=== PATIENT | male | born 1950 | race Hispanic/Latino ===

== ENCOUNTER 2020-02-05 08:46 | Outpatient (CLI) | payer MEDICARE, OTHER ==
--- NOTE | 2020-02-05 09:20 | RAD ---
XR Lumbar Spine 2 Or 3 View: 02/05/2020 8:57 AM INDICATION: Low back pain with bilateral sciatica COMPARISON: None FINDINGS: Fracture: None. Alignment: There is mild grade 1 anterolisthesis of L3 on L4. Degenerative Change: There is advanced disc degenerative disease at L5-S1 with moderate disc degener ative disease at L2-3 and L3-4. Mild disc degenerative disease is seen at L1-L2 and L4-5. There is advanced facet osteoarthrosis at L3-4 through L5-S1. Bone Mineralization:Normal Soft tissues: No acute abnormality. IMPRESSION: Moderate lumbar spondylosis. No acute fracture or subluxation.
--- NOTE | 2020-02-05 09:20 | RAD ---
XR Hip Lt 2-3 View INDICATION: Left hip pain COMPARISON: None FINDINGS: Bones: No acute fractures demonstrated. Small bone island is seen within the left acetabulum. Hip joint: Radiographically normal. SI joints and symphysis pubis: Radiographically normal. Intrapelvic contents: Small phlebolith is seen within the lower right hemipelvis. Surrounding soft tissues: Radiographically normal. IMPRESSION: 1. No acute osseous abnormality.
--- NOTE | 2020-02-05 12:33 | RAD ---
RIGHT HIP 2 VIEWS: Date: 02/05/2020 HISTORY: Right hip pain for the past 2 months. FINDINGS: There are arthritic changes of the hip. There is some subtle subchondral cystic change near the femor al head/neck junction laterally. This would suggest there is an element of mild femoroacetabular impi ngement. Some minimal superior joint space narrowing is seen. IMPRESSION: Mild arthritic change of the right hip. POS: FRITZ
== END 2020-02-05 08:47 | disposition home or self-care (01) ==
LOC: BICRAD 08:46
PROVIDERS: ATTEND Physician Assistant
DX: M25.551 Pain in right hip (principal); M25.552 Pain in left hip; M54.42 Lumbago with sciatica, left side; M54.41 Lumbago with sciatica, right side; M16.11 Unilateral primary osteoarthritis, right hip; M47.816 Spondylosis without myelopathy or radiculopathy, lumbar region
CPT/HCPCS: 72100

== ENCOUNTER 2020-02-12 12:42 | Outpatient (CLI) | payer MEDICARE, OTHER ==
--- NOTE | 2020-02-12 14:46 | MRI ---
MRI OF THE LUMBAR SPINE WITHOUT CONTRAST: 02/12/20 INDICATION: History of spondylosis with radiculopathy. COMPARISON: Prior lumbar spinal radiograph dated 02/05/20. FINDINGS: There are five lumbar type vertebral bodies seen on the comparison radiograph. 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 Spinal alignment appears within normal limits. Conus is seen to terminate at L3. The visualized retroperitoneum and periventricular soft tissues appear within normal limits. An additional benign appearing hemangioma is seen within the right aspect of T12. At L5-S1, there is Modic end plate degenerative change and severe loss of the normal disc space heigh t. There is a broad based disc osteophyte complex with facet hypertrophy inducing moderate right and mild left lateral recess narrowing. The facet hypertrophy and disc osteophyte complex with loss of di sc space height induces moderate bilateral neural foraminal narrowing, right greater than left. At L4-5, there is a broad based bulge and moderate facet joint degenerative change inducing mild left neural foraminal narrowing. At L3-4, there is a broad based bulge with facet hypertrophy and ligamentum flavum hypertrophy induci ng moderate central canal narrowing with mild bilateral neural foraminal narrowing. At L2-3, there is a broad based bulge with mild facet joint degenerative changes inducing mild centra l canal narrowing and mild bilateral neural foraminal narrowing. At L1-2, there is no appreciable central canal or neural foraminal narrowing. There is a small broad based bulge. At T12-L1, there is no appreciable central canal or neural foraminal narrowing. IMPRESSION: 1. Moderate lumbar spondylosis with moderate to severe bilateral neural foraminal narrowing at L 5-S1. There is moderate left and mild right lateral recess narrowing at L5-S1 due to disc osteophyte complex and facet hypertrophy. 2. Mild left neural foraminal narrowing at L4-5. 3. Moderate central canal narrowing at L3-4 with mild bilateral neural foraminal narrowing. 4. Mild central canal narrowing at L2-3 with mild bilateral neural foraminal narrowing. POS: BH
== END 2020-02-12 12:43 | disposition home or self-care (01) ==
LOC: BICMRI 12:42
PROVIDERS: ATTEND Physician Assistant
DX: M47.27 Other spondylosis with radiculopathy, lumbosacral region (principal); M47.26 Other spondylosis with radiculopathy, lumbar region; M48.07 Spinal stenosis, lumbosacral region; M25.78 Osteophyte, vertebrae; M48.061 Spinal stenosis, lumbar region without neurogenic claudication
CPT/HCPCS: 72148

== ENCOUNTER 2020-04-01 19:01 | Inpatient (IN) | payer MEDICARE, OTHER ==
[2020-04-01] MEDS ORDERED: Acetaminophen 500 MG TAB ONE (19:41)
[2020-04-01] MEDS ORDERED: Dexamethasone 10 MG/ML VIAL ONE (19:41)
--- NOTE | 2020-04-01 20:05 | RAD ---
PORTABLE CHEST: 04/01/20 PROVIDED CLINICAL HISTORY: Dyspnea. FINDINGS: No comparisons. The cardiac silhouette is within normal limits for portable technique. There are patchy bilateral pre dominantly perihilar parenchymal opacities. There is no pleural fluid or pneumothorax apparent. IMPRESSION: Findings compatible with COVID pneumonia. POS: OPAL
[2020-04-01 20:15] LABS: #Lymphocytes 0.7 thou/uL (1.20-3.40); #Monocytes 0.6 thou/uL (0.11-0.59); #Neutrophils 12.8 thou/uL (1.40-6.50); %Basophils 0.1 % (0.0-1.0); %Eosinophils 0.1 % (0.0-10.0); %Lymphocytes 4.9 % (21.0-51.0); %Monocytes 4.4 % (0.0-10.0); %Neutrophils 90.5 % (42.0-75.0); Hemoglobin 15.5 g/dL (14.0-18.0); Mean Corpuscular Hemoglobin 31.5 pg (27.0-31.0); Mean Corpuscular Volume 92.8 fL (78.0-98.0); Mean Platelet Volume 7.5 fL (7.4-10.4); Platelet Count 183 thou/uL (130-400); RBC Distribution Width 11.7 % (11.5-14.5); Red Blood Cell (RBC) Count 4.91 mill/uL (4.70-6.10); White Blood Cell (WBC) Count 14.2 thou/uL (4.8-10.8)
[2020-04-01] MEDS ORDERED: Azithromycin 500 MG VIAL ONE (20:35)
[2020-04-01 20:37] LABS: ALT (SGPT) 40 U/L (8-55); AST (SGOT) 41 U/L (5-34); Albumin 3.9 g/dL (3.4-4.8); Alkaline Phosphatase 67 U/L (40-110); Anion Gap 15 mmol/L (10-20); BUN (Urea Nitrogen) 11 mg/dL (8.4-25.7); Calc. Creatinine Clearance 0 mL/min (70-130); Calcium 8.4 mg/dL (7.8-10.44); Carbon Dioxide 25 mmol/L (23-31); Chloride 100 mmol/L (98-107); Globulin 3.6 g/dL (2.4-3.5); Glucose 99 mg/dL (80-115); Potassium 4.1 mmol/L (3.5-5.1); Protein, Total 7.5 g/dL (5.8-8.1); Sodium 136 mmol/L (136-145)
--- NOTE | 2020-04-01 21:20 | PDOC.HHP ---
Hospitalist HPI - History of Present Illness SOB History of Present Illness: Mr. Bull is a 69-year-old male with a past medical history of hyperlipidemia who presents for worsening shortness of breath. Patient reports that his symptoms began with fever, chills, myalgias and dry cough approximately one week ago. He tested positive for Covid on 03/27 after noticing a loss of taste and smell. Patient reports that over the past few days his breathing has worsened and he is now short of breath at rest. He endorses headache, denies changes in vision. Denies chest pain, palpitations. Endorses nausea, but denies abdominal pain or diarrhea. Emergency room initial vital signs 88% on room air, febrile to 103.2, 92, 25, improved to 97% on 3 L nasal cannula. WBC 14.2. H/H 15.5/45.5. BUN/CR 11/ 1.16. Lactic acid 1.3. Inflammatory markers elevated with CRP 18.65, ESR 56. AST/ALT 41/40. Chest x-ray showed bilateral patchy infiltrates consistent with Covid pneumonia. Patient received azithromycin, dexamethasone, normal saline, Tylenol in emergency room. Patient admitted to hospitalist service for further management of his COVID-19 pneumonia. Hospitalist ROS - Review of Systems Constitutional: reports: fever, chills, weakness, malaise. denies: sweats Eyes: denies: pain, vision change, conjunctivae inflammation, eyelid inflammation, redness, other ENT: denies: ear pain, ear discharge, nose pain, nose discharge, nose congestion, mouth pain, mouth swelling, throat pain, throat swelling, other Respiratory: reports: cough, dry, shortness of breath, SOB with excertion. denies: hemoptysis, pleuritic pain, sputum, wheezing, other Cardiovascular: denies: chest pain, palpitations, orthopnea, paroxysmal noc. dyspnea, edema, light headedness, other Gastrointestinal: denies: nausea, vomiting, abdominal pain, diarrhea, constipation, melena, hematochezia, other Genitourinary: denies: dysuria, frequency, incontinence, hematuria, retention, other Musculoskeletal: denies: neck pain, shoulder pain, arm pain, back pain, hand pain, leg pain, foot pain, other Skin: denies: rash, lesions, jone, bruising, other Neurological: denies: weakness, numbness, incoordination, change in speech, confusion, seizures, other - Medication Medications: Home medications include Simvastatin No known drug allergies Hospitalist History - Past Medical History Other Medical History: Past medical history includes Hyperlipidemia - Past Surgical History Other Surgical History: Past surgical history includes Appendectomy - Family History Other Family History: No pertinent family history - Social History Smoking Status: Never smoker Alcohol: reports: Rare Drugs: reports: none Living Situation: With Family Activity level: independent ambulation - Exam General Appearance: NAD, awake alert General - other findings: Comfortable on 3 L nasal cannula Eye: PERRL, anicteric sclera ENT: normocephalic atraumatic, no oropharyngeal lesions, moist mucosa Neck: supple, symmetric, no JVD, no thyromegaly, no lymphadenopathy, no carotid bruit Heart: RRR, no murmur, no gallops, no rubs, normal peripheral pulses Respiratory: normal chest expansion, no tachypnea, rales Respiratory - other findings: Rales throughout Gastrointestinal: soft, non-tender, non-distended, normal bowel sounds, no palpable masses, no hepatomegaly, no splenomegaly, no bruit Extremities: no cyanosis, no clubbing, no edema Skin: normal turgor, no lesions, no rashes Neurological: cranial nerve grossly intact, normal sensation to touch, no weakness, no focal deficits, no new deficit Musculoskeletal: normal tone, normal strength, no muscle wasting Psychiatric: normal affect, normal behavior, A&O x 3 Hospitalist Results - Labs Result Diagrams: 04/01/20 19:52 04/01/20 19:52 Lab results: WBC 14.2 thou/uL (4.8-10.8) H 04/01/20 19:52 Hgb 15.5 g/dL (14.0-18.0) 04/01/20 19:52 Hct 45.5 % (42.0-52.0) 04/01/20 19:52 MCV 92.8 fL (78.0-98.0) 04/01/20 19:52 Plt Count 183 thou/uL (130-400) 04/01/20 19:52 Neutrophils % 90.5 % (42.0-75.0) H 04/01/20 19:52 ESR Westergren 56 mm/hr (Less than 20) H 04/01/20 19:52 Sodium 136 mmol/L (136-145) 04/01/20 19:52 Potassium 4.1 mmol/L (3.5-5.1) 04/01/20 19:52 Chloride 100 mmol/L (98-107) 04/01/20 19:52 Carbon Dioxide 25 mmol/L (23-31) 04/01/20 19:52 BUN 11 mg/dL (8.4-25.7) 04/01/20 19:52 Creatinine 1.16 mg/dL (0.7-1.3) 04/01/20 19:52 Glucose 99 mg/dL (80-115) 04/01/20 19:52 Lactic Acid 1.3 mmol/L (0.5-2.2) 04/01/20 19:52 Calcium 8.4 mg/dL (7.8-10.44) 04/01/20 19:52 Total Bilirubin 1.0 mg/dL (0.2-1.2) 04/01/20 19:52 AST 41 U/L (5-34) H 04/01/20 19:52 ALT 40 U/L (8-55) 04/01/20 19:52 Alkaline Phosphatase 67 U/L (40-110) 04/01/20 19:52 C-Reactive Protein 18.65 mg/dL (= or < 0.5) H 04/01/20 19:52 Serum Total Protein 7.5 g/dL (5.8-8.1) 04/01/20 19:52 Albumin 3.9 g/dL (3.4-4.8) 04/01/20 19:52 Hospitalist H&P A/P - Plan Plan: COVID-19 pneumonia 69-year-old male with past medical history of hyperlipidemia presents with worsening shortness of breath found to have Covid 19 pneumonia. Chest x-ray shows bilateral patchy opacities consistent with Covid pneumonia. Patient initially saturating 88% on room air. WBC 14.2 with elevated inflammatory markers ESR 56, CRP 18.65. Patient received azithromycin and dexamethasone in the emergency room. We will closely monitor respiratory status and see if patient is candidate for remdesivir. Plan -Decadron, will see patient is candidate for remdesivir -Ceftriaxone, azithromycin -Supplemental oxygen -Tylenol, Robitussin -Vitamin C, zinc -We will obtain baseline inflammatory markers Acute hypoxic respiratory failure Patient with acute hypoxic respiratory failure secondary to moderate to severe COVID-19 pneumonia. Patient with new oxygen requirement now on 2 L of oxygen nasal cannula to maintain O2 sat. We will continue supplemental oxygen and closely monitor respiratory status. Treatment as above. Plan -Supplemental oxygen -Treatment as above -Closely monitor respiratory status Hyperlipidemia Continue home statin DVT prophylaxisLovenox Full code Case discussed with attending physician,
[2020-04-01 23:03] VITALS: BMI 30.2
[2020-04-02] MEDS ORDERED: Sodium Chloride 0.9% 1,000 ML IV SCH (00:15)
[2020-04-02] MEDS ORDERED: Loperamide HCl 2 MG CAP PO PRN ×2 (00:18)
[2020-04-02] MEDS ORDERED: Ondansetron PF 4 MG/2 ML Vial IVP PRN (00:18)
[2020-04-02] MEDS ORDERED: Ondansetron ODT 4 MG TAB PO PRN (00:18)
[2020-04-02] MEDS ORDERED: Acetaminophen 650 MG Suppository PR PRN (00:18)
[2020-04-02] MEDS ORDERED: Zolpidem Tartrate 5 MG TAB PO SCH (00:30)
[2020-04-02] MEDS: cefTRIAXone\\ROCEPHIN 1 GM in Sodium Chloride 0.9% 100 ML IVPB SCH (01:15)
[2020-04-02 06:22] LABS: #Lymphocytes 0.7 thou/uL (1.20-3.40); #Monocytes 0.3 thou/uL (0.11-0.59); #Neutrophils 10.8 thou/uL (1.40-6.50); %Basophils 0.1 % (0.0-1.0); %Eosinophils 0.1 % (0.0-10.0); %Lymphocytes 5.6 % (21.0-51.0); %Monocytes 2.8 % (0.0-10.0); %Neutrophils 91.3 % (42.0-75.0); Hemoglobin 14.7 g/dL (14.0-18.0); Mean Corpuscular HGB CONC 31.5 g/dL (32.0-36.0); Mean Corpuscular Hemoglobin 29.4 pg (27.0-31.0); Mean Corpuscular Volume 93.3 fL (78.0-98.0); Mean Platelet Volume 7.4 fL (7.4-10.4); Platelet Count 204 thou/uL (130-400); RBC Distribution Width 11.9 % (11.5-14.5); White Blood Cell (WBC) Count 11.9 thou/uL (4.8-10.8)
[2020-04-02] MEDS: Acetaminophen 325 MG TAB PO PRN ×3 (06:23→22:00)
[2020-04-02 06:47] LABS: Anion Gap 18 mmol/L (10-20); BUN (Urea Nitrogen) 13 mg/dL (8.4-25.7); Calc. Creatinine Clearance 93 mL/min (70-130); Calcium 8.1 mg/dL (7.8-10.44); Carbon Dioxide 19 mmol/L (23-31); Chloride 107 mmol/L (98-107); Glucose 146 mg/dL (80-115); Potassium 4.2 mmol/L (3.5-5.1); Sodium 140 mmol/L (136-145)
[2020-04-02] MEDS ORDERED: REMDESIVIR (EUA) 200 MG in Sodium Chloride 0.9% 250 ML 210 ML IV SCH (08:00)
--- NOTE | 2020-04-02 08:09 | PDOC.HOSPP ---
- Subjective Encounter Date: 04/02/20 Encounter Time: 08:07 Subjective: Patient seen and examined. No new complaints. No overnight events. Endorses dyspnea on exertion to the bathroom, mild non productive cough. Says headache is improving. Denies chest pain, heart palpitations, wheezing or hemoptysis. Discussed medication regimen. No further questions. - Objective Vital Signs & Weight: Vital Signs (12 hours) Temp Pulse Resp BP Pulse Ox 04/02/20 04:00 98.0 F 71 20 133/82 93 L 04/02/20 00:18 92 L 04/01/20 22:48 98.7 F 76 20 133/81 92 L Weight Weight 187 lb 5 oz I&O: 04/01/20 04/02/20 04/03/20 06:59 06:59 06:59 Intake Total 100 Balance 100 Result Diagrams: 04/02/20 06:02 04/02/20 06:02 Radiology Reviewed by me: Yes (cxr) Hospitalist ROS - Review of Systems Constitutional: reports: malaise. denies: fever, chills Respiratory: reports: cough (non productive), shortness of breath (mild), SOB with excertion. denies: hemoptysis Cardiovascular: denies: chest pain, palpitations, edema Gastrointestinal: denies: nausea, vomiting, abdominal pain Skin: denies: rash Neurological: denies: incoordination, change in speech All other systems reviewed; all pertinent +/- noted in HPI/Subj - Medication Medications: Active Medications Generic Name Dose Route Start Last Admin Trade Name Freq PRN Reason Stop Dose Admin Acetaminophen 650 mg 04/02/20 00:18 04/02/20 06:23 Acetaminophen 325 Mg Tab PO 650 mg Q4H PRN Administration Headache/Fever/Mild Pain (1-3) Ceftriaxone Sodium 1 gm/ 100 mls @ 200 mls/hr 04/02/20 01:00 04/02/20 01:15 Sodium Chloride IVPB 100 mls Q24HR MICHAEL Administration Sodium Chloride 10 ml 04/02/20 00:18 04/02/20 01:16 Flush - Normal Saline 10 Ml Syringe IVF 10 ml PRN PRN Administration Saline Flush - Exam General Appearance: NAD, awake alert. negative: ill appearing General - other findings: appears mildly uncomfortable Eye: anicteric sclera ENT: normocephalic atraumatic Heart: RRR, no murmur, no gallops, no rubs, normal peripheral pulses Respiratory: normal chest expansion, no tachypnea, rales, rhonchi, wheezes Gastrointestinal: soft, non-tender, non-distended, normal bowel sounds, no guarding, no rigidity Extremities: no edema Skin: no rashes Neurological: no focal deficits Psychiatric: normal affect, A&O x 3 Hosp A/P (1) Pneumonia due to COVID-19 virus Code(s): U07.1 - COVID-19; J12.89 - OTHER VIRAL PNEUMONIA Status: Acute (2) Acute respiratory failure with hypoxia Code(s): J96.01 - ACUTE RESPIRATORY FAILURE WITH HYPOXIA Status: Acute (3) Hyperlipidemia Code(s): E78.5 - HYPERLIPIDEMIA, UNSPECIFIED Status: Chronic - Plan Plan: Patient 92% on 2L NC WBCs improved 14.2 down to 11.9 Continue rocephin and azithromycin and remdesivir. Continue dexamethasone and LMWH. Add duonebs prn. Check on convalescent plasma order with Doc[facility]. Continue isolation precautions Repeat Inflammatory markers tomorrow. Start home dose simvastatin.
[2020-04-02] MEDS: Ascorbic Acid 500 mg Chewable Tablet PO SCH (09:36)
[2020-04-02] MEDS: Zinc Sulfate 220 MG CAP PO SCH (09:37)
[2020-04-02] MEDS: Dexamethasone 4 MG TAB PO SCH (09:37)
[2020-04-02] MEDS: Enoxaparin Sodium 40 MG/0.4 ML SYRINGE SC SCH (09:38)
[2020-04-02] MEDS ORDERED: Simvastatin 20 MG TAB PO SCH (21:00)
[2020-04-02] MEDS ORDERED: FLU VACC QS2020-21(65YR UP)/PF 240 MCG/0.7 ML SYRINGE IM ONE (21:00)
[2020-04-02] MEDS: Azithromycin 500 MG in Sodium Chloride 0.9% 250 ML 250 ML IVPB SCH (21:32)
[2020-04-02] MEDS: Atorvastatin Calcium 10 MG TAB PO SCH (21:32)
[2020-04-02] MEDS: Guaifenesin DM 100-10/5 ML UDCUP PO PRN (22:01)
[2020-04-02] MEDS ORDERED: Albuterol Sulfate 1.25 MG/3 ML NEB NEB SCH (23:45)
[2020-04-03] MEDS: cefTRIAXone\\ROCEPHIN 1 GM in Sodium Chloride 0.9% 100 ML IVPB SCH (00:41)
[2020-04-03] MEDS: Albuterol 200 PUFF (6.7GM INHALER) INH PRN ×2 (00:41→06:39)
[2020-04-03] MEDS ORDERED: Zolpidem Tartrate 5 MG TAB PO SCH (00:45)
[2020-04-03 05:30] LABS: Anion Gap 14 mmol/L (10-20); BUN (Urea Nitrogen) 17 mg/dL (8.4-25.7); Calc. Creatinine Clearance 104 mL/min (70-130); Calcium 8.1 mg/dL (7.8-10.44); Carbon Dioxide 22 mmol/L (23-31); Chloride 108 mmol/L (98-107); Glucose 150 mg/dL (80-115); Potassium 3.7 mmol/L (3.5-5.1); Sodium 140 mmol/L (136-145)
[2020-04-03 05:32] LABS: ALT (SGPT) 43 U/L (8-55); AST (SGOT) 26 U/L (5-34); Albumin 3.3 g/dL (3.4-4.8); Alkaline Phosphatase 57 U/L (40-110); Bilirubin, Direct 0.3 mg/dL (0.1-0.3); Bilirubin, Total 0.6 mg/dL (0.2-1.2); Protein, Total 6.4 g/dL (5.8-8.1)
[2020-04-03 05:34] LABS: Band 7 % (5-11); Hemoglobin 14.4 g/dL (14.0-18.0); Lymphocytes 3 % (21-51); MDiff Complete? YES; Mean Corpuscular HGB CONC 31.7 g/dL (32.0-36.0); Mean Corpuscular Hemoglobin 29.4 pg (27.0-31.0); Mean Corpuscular Volume 92.7 fL (78.0-98.0); Mean Platelet Volume 7.3 fL (7.4-10.4); Monocytes 3 % (0-10); Neutrophil 87 % (42-75); Platelet Count 292 thou/uL (130-400); Platelet Morphology Comment Appears Adequate; RBC Distribution Width 11.7 % (11.5-14.5); RBC Morphology Normal; White Blood Cell (WBC) Count 21.5 thou/uL (4.8-10.8)
[2020-04-03] MEDS: Guaifenesin DM 100-10/5 ML UDCUP PO PRN ×2 (06:34→21:03)
[2020-04-03] MEDS: Atorvastatin Calcium 20 MG TAB PO SCH (08:47)
[2020-04-03] MEDS: Zinc Sulfate 220 MG CAP PO SCH (08:47)
[2020-04-03] MEDS: Ascorbic Acid 500 mg Chewable Tablet PO SCH (08:47)
[2020-04-03] MEDS: Enoxaparin Sodium 40 MG/0.4 ML SYRINGE SC SCH (08:47)
[2020-04-03] MEDS: Dexamethasone 4 MG TAB PO SCH (08:47)
--- NOTE | 2020-04-03 09:40 | PDOC.HOSPP ---
- Subjective Encounter Date: 04/03/20 Encounter Time: 09:37 Subjective: Patient complaining of trouble sleeping through the night. He has an episode of tightness in his chest which improved with albuterol. He denies any chest pain. His breathing this morning is somewhat better. Denies any fevers overnight. Part of what kept him up was the pain in his left forearm due to IV access going bad while he was receiving Azithromycin. The discomfort has improved and he has new IV acess in the left lower forearm. Reports having an episode of diarrhea this morning and denies any blood in the stool. - Objective Vital Signs & Weight: Vital Signs (12 hours) Temp Pulse Resp BP Pulse Ox 04/03/20 04:05 98.2 F 72 26 H 118/73 96 04/03/20 03:34 97 04/03/20 01:24 67 20 97 Weight Weight 187 lb 5 oz I&O: 04/02/20 04/03/20 04/04/20 06:59 06:59 06:59 Intake Total 100 940 Balance 100 940 Result Diagrams: 04/03/20 04:58 04/03/20 04:58 Hospitalist ROS - Review of Systems Constitutional: denies: fever, chills, sweats, weakness, malaise, other Eyes: denies: pain, vision change, conjunctivae inflammation, eyelid inflammation, redness, other Respiratory: reports: cough, shortness of breath (episode of tightness with breathing last night, improved) Cardiovascular: denies: chest pain, palpitations, orthopnea, paroxysmal noc. dyspnea, edema, light headedness, other Gastrointestinal: reports: diarrhea Genitourinary: denies: dysuria, frequency, incontinence, hematuria, retention, other Musculoskeletal: reports: arm pain (resolved). denies: neck pain, shoulder pain, back pain, hand pain, leg pain, foot pain, other Skin: denies: rash, lesions, jone, bruising, other Neurological: denies: weakness, numbness, incoordination, change in speech, confusion, seizures, other - Medication Medications: Active Medications Generic Name Dose Route Start Last Admin Trade Name Freq PRN Reason Stop Dose Admin Acetaminophen 650 mg 04/02/20 00:18 04/02/20 22:00 Acetaminophen 325 Mg Tab PO 650 mg Q4H PRN Administration Headache/Fever/Mild Pain (1-3) Albuterol Sulfate 2 puff 04/02/20 23:53 04/03/20 06:39 Albuterol 200 Puff (6.7gm Inhaler) INH 2 puff Q4H PRN Administration SOB or Anxiety Ascorbic Acid 1,000 mg 04/02/20 09:00 04/03/20 08:47 Ascorbic Acid 500 Mg Chewable Tablet PO 1,000 mg DAILY MICHAEL Administration Atorvastatin Calcium 10 mg 04/02/20 21:00 04/02/20 21:32 Atorvastatin Calcium 10 Mg Tab PO 10 mg HS MICHAEL Administration Atorvastatin Calcium 20 mg 04/03/20 09:00 04/03/20 08:47 Atorvastatin Calcium 20 Mg Tab PO 20 mg DAILY MICHAEL Administration Dexamethasone 6 mg 04/02/20 08:00 04/03/20 08:47 Dexamethasone 4 Mg Tab PO 6 mg QAM-WM MICHAEL Administration Enoxaparin Sodium 40 mg 04/02/20 09:00 04/03/20 08:47 Enoxaparin Sodium 40 Mg/0.4 Ml Syringe SC 40 mg 0900 MICHAEL Administration Guaifenesin/Dextromethorphan 15 ml 04/02/20 00:18 04/03/20 06:34 Guaifenesin Dm 100-10/5 Ml Udcup PO 15 ml Q4H PRN Administration Cough Ceftriaxone Sodium 1 gm/ 100 mls @ 200 mls/hr 04/02/20 01:00 04/03/20 00:41 Sodium Chloride IVPB 100 mls Q24HR MICHAEL Administration Azithromycin 500 mg/ Sodium 250 mls @ 250 mls/hr 04/02/20 21:00 04/02/20 21:32 Chloride IVPB 250 mls Q24HR MICHAEL Administration Sodium Chloride 10 ml 04/02/20 00:18 04/02/20 01:16 Flush - Normal Saline 10 Ml Syringe IVF 10 ml PRN PRN Administration Saline Flush Zinc Sulfate 220 mg 04/02/20 09:00 04/03/20 08:47 Zinc Sulfate 220 Mg Cap PO 220 mg DAILY MICHAEL Administration - Exam General Appearance: NAD, awake alert Eye: PERRL, anicteric sclera ENT: normocephalic atraumatic, no oropharyngeal lesions, moist mucosa Neck: supple, no lymphadenopathy Heart: RRR, no murmur, no gallops, no rubs, normal peripheral pulses Respiratory: CTAB, no wheezes, no rales, no ronchi, normal chest expansion Gastrointestinal: soft, non-tender, non-distended, normal bowel sounds, no guarding, no rigidity Extremities: no edema Skin: normal turgor, no lesions, no rashes Neurological: cranial nerve grossly intact, normal sensation to touch, no weakness Musculoskeletal: normal tone, normal strength, no muscle wasting, generalized weakness Psychiatric: normal affect, normal behavior, A&O x 3, oriented to person Hosp A/P (1) Bandemia Code(s): D72.825 - BANDEMIA Status: Acute (2) Diarrhea Code(s): R19.7 - DIARRHEA, UNSPECIFIED Status: Acute (3) Acute respiratory failure with hypoxia Code(s): J96.01 - ACUTE RESPIRATORY FAILURE WITH HYPOXIA Status: Acute (4) Pneumonia due to COVID-19 virus Code(s): U07.1 - COVID-19; J12.89 - OTHER VIRAL PNEUMONIA Status: Acute (5) Hyperlipidemia Code(s): E78.5 - HYPERLIPIDEMIA, UNSPECIFIED Status: Chronic - Plan COVID pneumonia: Sats 98% on 2L by NC Continue antibiotics and steroids Receiving remdesivir Vitamin C and zinc ordered Continue robitussin Continue PRN albuterol Monitor inflammatory markers Leukocytosis/Bandemia: Afebrile CRP trending downward Patient on steroids No blood cultures on admission If further trend upward or temp elevation, obtain blood cultures check lactic acid Diarrhea: Check stool studies including c. diff Start florastor If c. diff negative will give Imodium Hyperlipidemia: Continue statin GI Prophylaxis: with Famotidine DVT prophylaxis: Lovenox
[2020-04-03] MEDS ORDERED: Saccharomyces boulardii 250 MG CAP PO SCH (10:45)
[2020-04-03] MEDS: REMDESIVIR (EUA) 100 MG in Sodium Chloride 0.9% 250 ML 230 ML IV SCH (11:10)
[2020-04-03 13:15] LABS: Bacteria/HPF None Seen HPF (None Seen); Bilirubin Negative (Negative); Blood, Urine Negative (Negative); Clarity Clear (Clear); Glucose, Urine (Dipstick) Normal (Negative); Ketone, Urine Negative (Negative); Leukocyte Negative Leu/uL (Negative); Nitrite Negative (Negative); Protein, Urine (Dipstick) Negative (Neg-Trace); RBC/HPF 0-3 HPF (0-3); Specific Gravity, Urine 1.006 (1.002-1.036); Squamous Epithelial 0-3 HPF (0-3); Urobilinogen Normal mg/dL (Less than 2); WBC/HPF 0-3 HPF (0-3)
[2020-04-03 13:16] LABS: Urine Culture Reflex No No
[2020-04-03] MEDS: Zolpidem Tartrate 5 MG TAB PO SCH (21:01)
[2020-04-03] MEDS: Atorvastatin Calcium 10 MG TAB PO SCH (21:02)
[2020-04-03] MEDS: Famotidine 20 MG TAB PO SCH (21:02)
[2020-04-03] MEDS: Azithromycin 500 MG in Sodium Chloride 0.9% 250 ML 250 ML IVPB SCH (21:02)
[2020-04-03] MEDS: Acetaminophen 325 MG TAB PO PRN (21:02)
[2020-04-04] MEDS: cefTRIAXone\\ROCEPHIN 1 GM in Sodium Chloride 0.9% 100 ML IVPB SCH (00:53)
[2020-04-04 05:40] LABS: #Eosinphils 0.1 thou/uL (0.0-0.7); #Lymphocytes 1.1 thou/uL (1.20-3.40); #Monocytes 1.3 thou/uL (0.11-0.59); #Neutrophils 14.8 thou/uL (1.40-6.50); %Eosinophils 0.3 % (0.0-10.0); %Lymphocytes 6.6 % (21.0-51.0); %Monocytes 7.6 % (0.0-10.0); %Neutrophils 85.4 % (42.0-75.0); Hemoglobin 14.7 g/dL (14.0-18.0); Mean Corpuscular HGB CONC 33.8 g/dL (32.0-36.0); Mean Corpuscular Hemoglobin 31.4 pg (27.0-31.0); Mean Corpuscular Volume 92.9 fL (78.0-98.0); Mean Platelet Volume 7.4 fL (7.4-10.4); Platelet Count 315 thou/uL (130-400); RBC Distribution Width 11.7 % (11.5-14.5); Red Blood Cell (RBC) Count 4.67 mill/uL (4.70-6.10); White Blood Cell (WBC) Count 17.3 thou/uL (4.8-10.8)
[2020-04-04 05:59] LABS: Lactic Acid 1.2 mmol/L (0.5-2.2)
[2020-04-04 06:01] LABS: Anion Gap 14 mmol/L (10-20); BUN (Urea Nitrogen) 18 mg/dL (8.4-25.7); Calc. Creatinine Clearance 105 mL/min (70-130); Carbon Dioxide 21 mmol/L (23-31); Chloride 107 mmol/L (98-107); Glucose 119 mg/dL (80-115); Potassium 3.7 mmol/L (3.5-5.1); Sodium 138 mmol/L (136-145)
[2020-04-04 06:02] LABS: CRP (Inflammatory) 3.92 mg/dL (= or < 0.5); Magnesium 2.3 mg/dL (1.6-2.6)
[2020-04-04] MEDS: Famotidine 20 MG TAB PO SCH ×2 (07:59→20:00)
[2020-04-04] MEDS: Dexamethasone 4 MG TAB PO SCH (07:59)
[2020-04-04] MEDS: Saccharomyces boulardii 250 MG CAP PO SCH (08:00)
[2020-04-04] MEDS: Zinc Sulfate 220 MG CAP PO SCH (08:00)
[2020-04-04] MEDS: Enoxaparin Sodium 40 MG/0.4 ML SYRINGE SC SCH (08:00)
[2020-04-04] MEDS: Atorvastatin Calcium 20 MG TAB PO SCH (08:00)
[2020-04-04] MEDS: Acetaminophen 325 MG TAB PO PRN (08:01)
--- NOTE | 2020-04-04 09:48 | PDOC.HOSPP ---
- Subjective Encounter Date: 04/04/20 Encounter Time: 09:12 Subjective: Patient states he had a mild headache that got better with Tylenol. Continues with a cough and tightness in his chest when he takes a deep breath in. Afebrile overnight. Low appetite but no nausea or vomiting. Though he does not feel significantly better the states he is not feeling worse. - Objective Vital Signs & Weight: Vital Signs (12 hours) Temp Pulse Resp BP Pulse Ox 04/04/20 08:00 97.7 F 83 20 128/76 93 L 04/04/20 04:22 96 04/04/20 04:02 98.5 F 62 16 154/92 H 96 04/04/20 00:00 66 Weight Weight 187 lb 5 oz I&O: 04/03/20 04/04/20 04/05/20 06:59 06:59 06:59 Intake Total 940 1800 Balance 940 1800 Result Diagrams: 04/04/20 05:22 04/04/20 05:22 Hospitalist ROS - Review of Systems Constitutional: denies: fever, chills, sweats, weakness, malaise, other Eyes: denies: pain, vision change, conjunctivae inflammation, eyelid inflammation, redness, other ENT: denies: ear pain, ear discharge, nose pain, nose discharge, nose congestion, mouth pain, mouth swelling, throat pain, throat swelling, other Respiratory: reports: cough Cardiovascular: denies: chest pain, palpitations, orthopnea, paroxysmal noc. dyspnea, edema, light headedness, other Gastrointestinal: denies: nausea, vomiting, abdominal pain, diarrhea, constipation, melena, hematochezia, other Musculoskeletal: denies: neck pain, shoulder pain, arm pain, back pain, hand pain, leg pain, foot pain, other Skin: denies: rash, lesions, jone, bruising, other Neurological: denies: weakness, numbness, incoordination, change in speech, confusion, seizures, other - Medication Medications: Active Medications Generic Name Dose Route Start Last Admin Trade Name Freq PRN Reason Stop Dose Admin Acetaminophen 650 mg 04/02/20 00:18 04/04/20 08:01 Acetaminophen 325 Mg Tab PO 650 mg Q4H PRN Administration Headache/Fever/Mild Pain (1-3) Albuterol Sulfate 2 puff 04/02/20 23:53 04/03/20 06:39 Albuterol 200 Puff (6.7gm Inhaler) INH 2 puff Q4H PRN Administration SOB or Anxiety Ascorbic Acid 1,000 mg 04/02/20 09:00 04/03/20 08:47 Ascorbic Acid 500 Mg Chewable Tablet PO 1,000 mg DAILY MICHAEL Administration Atorvastatin Calcium 10 mg 04/02/20 21:00 04/03/20 21:02 Atorvastatin Calcium 10 Mg Tab PO 10 mg HS MICHAEL Administration Atorvastatin Calcium 20 mg 04/03/20 09:00 04/04/20 08:00 Atorvastatin Calcium 20 Mg Tab PO 20 mg DAILY MICHAEL Administration Dexamethasone 6 mg 04/02/20 08:00 04/04/20 07:59 Dexamethasone 4 Mg Tab PO 6 mg QAM-WM MICHAEL Administration Enoxaparin Sodium 40 mg 04/02/20 09:00 04/04/20 08:00 Enoxaparin Sodium 40 Mg/0.4 Ml Syringe SC 40 mg 0900 MICHAEL Administration Famotidine 20 mg 04/03/20 21:00 04/04/20 07:59 Famotidine 20 Mg Tab PO 20 mg BID MICHAEL Administration Guaifenesin/Dextromethorphan 15 ml 04/02/20 00:18 04/03/20 21:03 Guaifenesin Dm 100-10/5 Ml Udcup PO 15 ml Q4H PRN Administration Cough Remdesivir 100 mg/ Sodium 250 mls @ 250 mls/hr 04/03/20 09:00 04/03/20 11:10 Chloride IV 04/06/20 09:59 250 mls 0900 MICHAEL Administration Ceftriaxone Sodium 1 gm/ 100 mls @ 200 mls/hr 04/02/20 01:00 04/04/20 00:53 Sodium Chloride IVPB 100 mls Q24HR MICHAEL Administration Azithromycin 500 mg/ Sodium 250 mls @ 250 mls/hr 04/02/20 21:00 04/03/20 21:02 Chloride IVPB 250 mls Q24HR MICHAEL Administration Saccharomyces Boulardii 250 mg 04/04/20 09:00 04/04/20 08:00 Saccharomyces Boulardii 250 Mg Cap PO 250 mg DAILY MICHAEL Administration Sodium Chloride 10 ml 04/02/20 00:18 04/03/20 21:02 Flush - Normal Saline 10 Ml Syringe IVF 10 ml PRN PRN Administration Saline Flush Zinc Sulfate 220 mg 04/02/20 09:00 04/04/20 08:00 Zinc Sulfate 220 Mg Cap PO 220 mg DAILY MICHAEL Administration Zolpidem Tartrate 10 mg 04/03/20 21:00 04/03/20 21:01 Zolpidem Tartrate 5 Mg Tab PO 10 mg HS MICHAEL Administration - Exam General Appearance: NAD, awake alert Eye: PERRL, anicteric sclera ENT: normocephalic atraumatic, moist mucosa Neck: supple, no lymphadenopathy Heart: RRR, normal peripheral pulses Respiratory: CTAB, no wheezes, no rales, no ronchi, normal chest expansion Gastrointestinal: soft, non-tender, non-distended, normal bowel sounds Extremities: no edema Skin: normal turgor, no lesions, no rashes Neurological: cranial nerve grossly intact, normal sensation to touch Musculoskeletal: normal tone, normal strength, no muscle wasting Psychiatric: normal affect, normal behavior, A&O x 3 Hosp A/P (1) Pneumonia due to COVID-19 virus Code(s): U07.1 - COVID-19; J12.89 - OTHER VIRAL PNEUMONIA Status: Acute (2) Diarrhea Code(s): R19.7 - DIARRHEA, UNSPECIFIED Status: Resolved (3) Hyperlipidemia Code(s): E78.5 - HYPERLIPIDEMIA, UNSPECIFIED Status: Chronic - Plan COVID pneumonia: Sats 98% on 2L by NC Continue antibiotics and steroids Receiving remdesivir Vitamin C and zinc ordered Continue robitussin Continue PRN albuterol Monitor inflammatory markers- trending downward Leukocytosis: Improving He is on steroids, remains afebrile CRP trending downward No blood cultures on admission If further trend upward or temp elevation, obtain blood cultures check lactic acid Diarrhea: stool studies pending, no further loose stools Florastor started Hyperlipidemia: Continue statin GI Prophylaxis: with Famotidine DVT prophylaxis: Lovenox CODE STATUS FULL
[2020-04-04] MEDS: REMDESIVIR (EUA) 100 MG in Sodium Chloride 0.9% 250 ML 230 ML IV SCH (10:06)
[2020-04-04] MEDS: Ascorbic Acid 500 mg Chewable Tablet PO SCH (10:07)
[2020-04-04] MEDS: Zolpidem Tartrate 5 MG TAB PO SCH (20:00)
[2020-04-04] MEDS: Atorvastatin Calcium 10 MG TAB PO SCH (20:00)
[2020-04-04] MEDS: Azithromycin 500 MG in Sodium Chloride 0.9% 250 ML 250 ML IVPB SCH (22:19)
[2020-04-05] MEDS: cefTRIAXone\\ROCEPHIN 1 GM in Sodium Chloride 0.9% 100 ML IVPB SCH (02:02)
[2020-04-05 07:06] LABS: #Eosinphils 0.1 thou/uL (0.0-0.7); #Lymphocytes 1.1 thou/uL (1.20-3.40); #Monocytes 1.4 thou/uL (0.11-0.59); #Neutrophils 9.3 thou/uL (1.40-6.50); %Eosinophils 0.6 % (0.0-10.0); %Lymphocytes 9.5 % (21.0-51.0); %Monocytes 11.6 % (0.0-10.0); %Neutrophils 78.3 % (42.0-75.0); Hemoglobin 14.9 g/dL (14.0-18.0); Mean Corpuscular HGB CONC 33.8 g/dL (32.0-36.0); Mean Corpuscular Hemoglobin 31.7 pg (27.0-31.0); Mean Corpuscular Volume 93.7 fL (78.0-98.0); Mean Platelet Volume 6.8 fL (7.4-10.4); Platelet Count 335 thou/uL (130-400); RBC Distribution Width 11.6 % (11.5-14.5); Red Blood Cell (RBC) Count 4.69 mill/uL (4.70-6.10); White Blood Cell (WBC) Count 11.9 thou/uL (4.8-10.8)
[2020-04-05 07:25] LABS: Lactic Acid 1.2 mmol/L (0.5-2.2)
[2020-04-05 07:29] LABS: ALT (SGPT) 57 U/L (8-55); AST (SGOT) 41 U/L (5-34); Albumin 3.2 g/dL (3.4-4.8); Alkaline Phosphatase 56 U/L (40-110); Anion Gap 15 mmol/L (10-20); BUN (Urea Nitrogen) 18 mg/dL (8.4-25.7); Bilirubin, Total 0.8 mg/dL (0.2-1.2); Calc. Creatinine Clearance 101 mL/min (70-130); Calcium 8.1 mg/dL (7.8-10.44); Carbon Dioxide 22 mmol/L (23-31); Chloride 106 mmol/L (98-107); Globulin 3.1 g/dL (2.4-3.5); Glucose 99 mg/dL (80-115); Potassium 3.9 mmol/L (3.5-5.1); Protein, Total 6.3 g/dL (5.8-8.1); Sodium 139 mmol/L (136-145)
[2020-04-05] MEDS: Dexamethasone 4 MG TAB PO SCH (09:21)
[2020-04-05] MEDS: Saccharomyces boulardii 250 MG CAP PO SCH (09:21)
[2020-04-05] MEDS: Famotidine 20 MG TAB PO SCH ×2 (09:21→22:17)
[2020-04-05] MEDS: Atorvastatin Calcium 20 MG TAB PO SCH (09:21)
[2020-04-05] MEDS: Enoxaparin Sodium 40 MG/0.4 ML SYRINGE SC SCH (09:21)
[2020-04-05] MEDS: Zinc Sulfate 220 MG CAP PO SCH (09:21)
[2020-04-05] MEDS: Ascorbic Acid 500 mg Chewable Tablet PO SCH (09:21)
[2020-04-05] MEDS: REMDESIVIR (EUA) 100 MG in Sodium Chloride 0.9% 250 ML 230 ML IV SCH (11:02)
--- NOTE | 2020-04-05 17:04 | PDOC.HOSPP ---
- Subjective Encounter Date: 04/05/20 Encounter Time: 14:00 Subjective: Patient seen and examined for respiratory failure due to COVID-19 pneumonia. Shortness of breath improving. Mild dry cough. No fever or chills reported. - Objective Vital Signs & Weight: Vital Signs (12 hours) Temp Pulse Resp BP BP Pulse Ox 04/05/20 16:26 98.0 F 68 18 109/74 94 L 04/05/20 11:40 98.6 F 63 16 129/78 95 04/05/20 08:00 98.1 F 75 22 H 142/90 H 92 L Weight Weight 187 lb 5 oz I&O: 04/04/20 04/05/20 04/06/20 06:59 06:59 06:59 Intake Total 1800 1560 Balance 1800 1560 Result Diagrams: 04/05/20 06:53 04/05/20 06:53 Additional Labs: Abnormal Lab Results - Last 48 hrs 04/04/20 05:22: Carbon Dioxide 21 L 04/04/20 05:22: WBC 17.3 H, RBC 4.67 L, MCH 31.4 H, Neutrophils % 85.4 H, Lymphocytes % 6.6 L, Neutrophils # 14.8 H, Lymphocytes # 1.1 L, Monocytes # 1.3 H 04/04/20 05:22: C-Reactive Protein 3.92 H 04/05/20 06:53: Carbon Dioxide 22 L, AST 41 H, ALT 57 H, Albumin 3.2 L, Albumin/Globulin Ratio 1.0 L 04/05/20 06:53: WBC 11.9 H, RBC 4.69 L, MCH 31.7 H, MPV 6.8 L, Neutrophils % 78.3 H, Lymphocytes % 9.5 L, Monocytes % 11.6 H, Neutrophils # 9.3 H, Lymphocytes # 1.1 L, Monocytes # 1.4 H 04/05/20 06:53: C-Reactive Protein 2.97 H 04/05/20 10:42: D-Dimer 0.75 H Microbiology - Entire Visit 04/04/20 10:30 Stool - Formed Stool Culture - Preliminary 04/04/20 10:30 Stool - Formed Escherichia coli 0157 Culture - Final 04/04/20 10:30 Stool C. difficile GDH Antigen & Toxins - Final 04/04/20 10:30 Stool - Formed Stool Lactoferrin - Final 04/04/20 10:30 Stool - Formed Campylobacter Antigen Assay - Final 04/04/20 10:30 Stool - Formed Shiga Toxin Test - Final EKG Reviewed by me: Yes (Sinus rhythm on telemetry) Hospitalist ROS - Review of Systems Constitutional: reports: weakness. denies: fever, chills, sweats, malaise, other Gastrointestinal: denies: nausea, vomiting, abdominal pain, diarrhea, constipation, melena, hematochezia, other - Medication Medications: Active Medications Generic Name Dose Route Start Last Admin Trade Name Freq PRN Reason Stop Dose Admin Acetaminophen 650 mg 04/02/20 00:18 04/04/20 08:01 Acetaminophen 325 Mg Tab PO 650 mg Q4H PRN Administration Headache/Fever/Mild Pain (1-3) Albuterol Sulfate 2 puff 04/02/20 23:53 04/03/20 06:39 Albuterol 200 Puff (6.7gm Inhaler) INH 2 puff Q4H PRN Administration SOB or Anxiety Ascorbic Acid 1,000 mg 04/02/20 09:00 04/05/20 09:21 Ascorbic Acid 500 Mg Chewable Tablet PO 1,000 mg DAILY MICHAEL Administration Atorvastatin Calcium 20 mg 04/03/20 09:00 04/05/20 09:21 Atorvastatin Calcium 20 Mg Tab PO 20 mg DAILY MICHAEL Administration Dexamethasone 6 mg 04/02/20 08:00 04/05/20 09:21 Dexamethasone 4 Mg Tab PO 6 mg QAM-WM MICHAEL Administration Enoxaparin Sodium 40 mg 04/02/20 09:00 04/05/20 09:21 Enoxaparin Sodium 40 Mg/0.4 Ml Syringe SC 40 mg 0900 MICHAEL Administration Famotidine 20 mg 04/03/20 21:00 04/05/20 09:21 Famotidine 20 Mg Tab PO 20 mg BID MICHAEL Administration Guaifenesin/Dextromethorphan 15 ml 04/02/20 00:18 04/03/20 21:03 Guaifenesin Dm 100-10/5 Ml Udcup PO 15 ml Q4H PRN Administration Cough Remdesivir 100 mg/ Sodium 250 mls @ 250 mls/hr 04/03/20 09:00 04/05/20 11:02 Chloride IV 04/06/20 09:59 250 mls 0900 MICHAEL Administration Ceftriaxone Sodium 1 gm/ 100 mls @ 200 mls/hr 04/02/20 01:00 04/05/20 02:02 Sodium Chloride IVPB 100 mls Q24HR MICHAEL Administration Azithromycin 500 mg/ Sodium 250 mls @ 250 mls/hr 04/02/20 21:00 04/04/20 22:19 Chloride IVPB 250 mls Q24HR MICHAEL Administration Saccharomyces Boulardii 250 mg 04/04/20 09:00 04/05/20 09:21 Saccharomyces Boulardii 250 Mg Cap PO 250 mg DAILY MICHAEL Administration Sodium Chloride 10 ml 04/02/20 00:18 04/03/20 21:02 Flush - Normal Saline 10 Ml Syringe IVF 10 ml PRN PRN Administration Saline Flush Zinc Sulfate 220 mg 04/02/20 09:00 04/05/20 09:21 Zinc Sulfate 220 Mg Cap PO 220 mg DAILY MICHAEL Administration Zolpidem Tartrate 10 mg 04/03/20 21:00 04/04/20 20:00 Zolpidem Tartrate 5 Mg Tab PO 10 mg HS MICHAEL Administration - Exam General Appearance: ill appearing Heart: RRR, no gallops Respiratory: rales, rhonchi Gastrointestinal: soft, non-distended Extremities: no cyanosis, no clubbing Hosp A/P - Plan Acute hypoxic respiratory failure due to COVID-19 pneumonia Diarrhea due to COVID-19resolved Hyperlipidemia Obesity with a BMI 30.2 CKD stage II Abnormal LFTs Plan: Discontinue ceftriaxone and azithromycin. Continue remdesivirtomorrow is the last day for remdesivir. Continue dexamethasone. Home O2 set up. Recheck LFTs in a.m. Continue other medications as above. DC in a.m. after home O2 set up. Continue DVT prophylaxis
[2020-04-05] MEDS: Zolpidem Tartrate 5 MG TAB PO SCH (22:17)
[2020-04-06] MEDS: Acetaminophen 325 MG TAB PO PRN (04:25)
[2020-04-06 05:27] LABS: ALT (SGPT) 61 U/L (8-55); AST (SGOT) 25 U/L (5-34); Albumin 3.5 g/dL (3.4-4.8); Alkaline Phosphatase 63 U/L (40-110); Anion Gap 14 mmol/L (10-20); BUN (Urea Nitrogen) 18 mg/dL (8.4-25.7); Bilirubin, Total 1.1 mg/dL (0.2-1.2); Calc. Creatinine Clearance 94 mL/min (70-130); Calcium 8.5 mg/dL (7.8-10.44); Carbon Dioxide 24 mmol/L (23-31); Chloride 104 mmol/L (98-107); Globulin 3.4 g/dL (2.4-3.5); Glucose 104 mg/dL (80-115); Protein, Total 6.9 g/dL (5.8-8.1); Sodium 138 mmol/L (136-145)
[2020-04-06 05:43] LABS: Hemoglobin 15.6 g/dL (14.0-18.0); Mean Corpuscular HGB CONC 33.5 g/dL (32.0-36.0); Mean Corpuscular Hemoglobin 31.2 pg (27.0-31.0); Mean Corpuscular Volume 93.2 fL (78.0-98.0); Mean Platelet Volume 6.9 fL (7.4-10.4); Platelet Count 428 thou/uL (130-400); RBC Distribution Width 11.9 % (11.5-14.5); Red Blood Cell (RBC) Count 4.99 mill/uL (4.70-6.10); White Blood Cell (WBC) Count 17.6 thou/uL (4.8-10.8)
[2020-04-06 06:16] LABS: Band 3 % (5-11); Lymphocytes 13 % (21-51); MDiff Complete? YES; Monocytes 8 % (0-10); Neutrophil 76 % (42-75)
[2020-04-06] MEDS: Enoxaparin Sodium 40 MG/0.4 ML SYRINGE SC SCH (08:47)
[2020-04-06] MEDS: Atorvastatin Calcium 20 MG TAB PO SCH (08:48)
[2020-04-06] MEDS: Famotidine 20 MG TAB PO SCH (08:48)
[2020-04-06] MEDS: Dexamethasone 4 MG TAB PO SCH (08:48)
[2020-04-06] MEDS: Saccharomyces boulardii 250 MG CAP PO SCH (08:48)
[2020-04-06] MEDS: Ascorbic Acid 500 mg Chewable Tablet PO SCH (08:49)
[2020-04-06] MEDS: Zinc Sulfate 220 MG CAP PO SCH (08:49)
[2020-04-06] MEDS: REMDESIVIR (EUA) 100 MG in Sodium Chloride 0.9% 250 ML 230 ML IV SCH (10:38)
[2020-04-06 11:38] VITALS: BP 123/78; TEMP 98.1
--- NOTE | 2020-04-06 17:19 | PDOC.DS.DS ---
Provider - Provider Date of Admission: 04/01/20 21:02 Date of Discharge: 04/06/20 Admitting Provider: George Zhang Consultations: None Primary Care Physician: Rafita Henley PA-C Course - Hospital Course Hospital Course: Patient is a 69-year-old male who presented to the emergency room on 04/01 with shortness of breath along with fever, chills, myalgias and dry cough of 1 week duration. He was tested positive for Covid 19 on 03/27. Please refer to the history and physical for further details. The patient was admitted to the hospital with a diagnosis of COVID-19 pneumonia. His chest x-ray on 04/01 showed patchy bilateral perihilar parenchymal opacities. He was started on remdesivir along with dexamethasone and other supportive measures. He was also placed on nebulizer treatments. Patient has done well over the last 5 days. He is saturating 94% on 1.5 L nasal cannula. Home oxygen will be arranged. He will complete 10-day course of dexamethasone. He was advised to follow-up with infectious disease as outpatient. He appears stable for discharge and understands the above plan of care. Final diagnosis: Acute hypoxic respiratory failure due to COVID-19 pneumonia Diarrhea due to COVID-19resolved Hyperlipidemia Obesity with a BMI 30.2 CKD stage II Abnormal LFTs Resuscitation Status: 04/02/20 00:18 Resuscitation Status Routine Co-Sign Provider: Resuscitation Status: FULL: Full Resuscitation - Labs Lab Results: 04/06/20 04:44 04/06/20 04:44 Abnormal Lab Results - Last 48 hrs 04/05/20 06:53: Carbon Dioxide 22 L, AST 41 H, ALT 57 H, Albumin 3.2 L, Albumin/Globulin Ratio 1.0 L 04/05/20 06:53: WBC 11.9 H, RBC 4.69 L, MCH 31.7 H, MPV 6.8 L, Neutrophils % 78.3 H, Lymphocytes % 9.5 L, Monocytes % 11.6 H, Neutrophils # 9.3 H, Lymphocytes # 1.1 L, Monocytes # 1.4 H 04/05/20 06:53: C-Reactive Protein 2.97 H 04/05/20 10:42: D-Dimer 0.75 H 04/06/20 04:44: WBC 17.6 H, MCH 31.2 H, Plt Count 428 H, MPV 6.9 L, Neutrophils % (Manual) 76 H, Band Neuts % (Manual) 3 L, Lymphocytes % (Manual) 13 L 04/06/20 04:44: ALT 61 H, Albumin/Globulin Ratio 1.0 L Microbiology - Entire Visit 04/04/20 10:30 Stool - Formed Stool Culture - Preliminary 04/04/20 10:30 Stool - Formed Escherichia coli 0157 Culture - Final 04/04/20 10:30 Stool C. difficile GDH Antigen & Toxins - Final 04/04/20 10:30 Stool - Formed Stool Lactoferrin - Final 04/04/20 10:30 Stool - Formed Campylobacter Antigen Assay - Final 04/04/20 10:30 Stool - Formed Shiga Toxin Test - Final - Physical Exam Vitals: Vital Signs (12 hours) Temp Pulse Resp BP BP Pulse Ox 04/06/20 11:37 98.1 F 79 20 123/78 93 L 04/06/20 08:00 98.0 F 72 20 122/74 94 L Weight Weight 187 lb 5 oz Physical Exam: The patient was seen and examined on the day of discharge. Plan - Discharge Medications Prescriptions: Aspirin [Aspirin EC] 81 mg PO DAILY #30 tablet. Dexamethasone 6 mg PO DAILY #4 tablet Albuterol Sulfate HFA (OR) [Proventil Hfa (or)] 2 puff INH Q4H #1 inh Ascorbic Acid [Vitamin C] 1,000 mg PO DAILY #30 tablet Zinc Sulfate 220 mg PO DAILY #30 cap Home Medications: Medication Instructions Recorded Confirmed Type Atorvastatin Calcium [Lipitor] 20 mg PO DAILY 04/02/20 04/02/20 History Omeprazole 40 mg PO DAILY 04/02/20 04/02/20 History Zolpidem Tartrate [Ambien CR] 12.5 mg PO HS 04/02/20 04/02/20 History Albuterol Sulfate HFA (OR) 2 puff INH Q4H #1 inh 04/05/20 Rx [Proventil Hfa (or)] Ascorbic Acid [Vitamin C] 1,000 mg PO DAILY #30 tablet 04/06/20 Rx Aspirin [Aspirin EC] 81 mg PO DAILY #30 tablet. 04/06/20 Rx Dexamethasone 6 mg PO DAILY #4 tablet 04/06/20 Rx Zinc Sulfate 220 mg PO DAILY #30 cap 04/06/20 Rx Allergies: No Known Drug Intolerances Allergy (Verified 04/02/20 04:19) Per pt. - Discharge Instructions Discharge Instructions:: Monitor Pulse Ox - Follow up Plan Referrals: Rafita Henley PA-C [Primary Care Provider] - 7 Days Saw Weeks MD [Active] - 7 Days Disposition: HOME Quality - Care Measures CORE MEASURES:: N/A
== END 2020-04-06 15:15 | disposition home or self-care (01) | DRG 177 ==
LOC: ERS 19:01 → 2SW 21:02
PROVIDERS: ADMIT Internal Medicine; ATTEND Internal Medicine
PROC: XW13325 Transfusion of Convalescent Plasma (Nonautologous) into Peripheral Vein, Percutaneous Approach, New Technology Group 5 (ICD-10-PCS; principal; 2020-04-02)
PROC: XW033E5 Introduction of Remdesivir Anti-infective into Peripheral Vein, Percutaneous Approach, New Technology Group 5 (ICD-10-PCS; 2020-04-02)
PROC: 8E0ZXY6 Isolation (ICD-10-PCS; 2020-04-02)
DX: U07.1 COVID-19 (principal); J96.01 Acute respiratory failure with hypoxia; J12.82 Pneumonia due to coronavirus disease 2019; A08.39 Other viral enteritis; E78.5 Hyperlipidemia, unspecified; N18.2 Chronic kidney disease, stage 2 (mild); R94.5 Abnormal results of liver function studies; E78.00 Pure hypercholesterolemia, unspecified; E66.9 Obesity, unspecified; Z68.30 Body mass index [BMI] 30.0-30.9, adult; Z90.49 Acquired absence of other specified parts of digestive tract; Z28.21 Immunization not carried out because of patient refusal; Z79.899 Other long term (current) drug therapy
CPT/HCPCS: 36415; 36430; 71045; 80048; 80053; 80076; 81001; 82728; 83605; 83630; 83735; 84484; 85025; 85379; 85652; 86140; 86850; 86900; 86901; 87045; 87046; 87081; 87324; 87427; 87449; 94760; 96365; 96366; 96375; J0456; J0696; J1100; J1650; J3490; J7050; J8540; P9017

== ENCOUNTER 2020-04-28 12:42 | Outpatient (CLI) | payer MEDICARE, OTHER ==
--- NOTE | 2020-04-28 13:38 | RAD ---
EXAM: Chest PA and lateral: HISTORY: COVID pneumonia COMPARISON: 04/01/2020 FINDINGS: Heart: Normal cardiac silhouette Aorta: Unremarkable Pulmonary vessels: Normal Costophrenic angles: Costophrenic angles are clear. Lungs: Worsening multi focal interstitial and alveolar opacities. Tenting of the right hemidiaphragm due to right lower lobe atelectasis Pneumothorax: No pneumothorax Osseous structures: No osseous abnormalities IMPRESSION: Worsening multi lobar COVID pneumonia. There is evidence of right lower lobe atelectasis with tenting of the right hemidiaphragm.
== END 2020-04-28 12:43 | disposition home or self-care (01) ==
LOC: BICRAD 12:42
PROVIDERS: ATTEND Physician Assistant
DX: J12.82 Pneumonia due to coronavirus disease 2019 (principal); J98.11 Atelectasis; R06.02 Shortness of breath; R07.89 Other chest pain; K59.00 Constipation, unspecified; Z86.16 Personal history of COVID-19; Z79.899 Other long term (current) drug therapy
CPT/HCPCS: 36415; 71046; 80053; 84443; 85025; 85379

== ENCOUNTER 2020-09-24 15:48 | Outpatient (CLI) | payer MEDICARE, OTHER ==
[2020-09-24 16:47] LABS: #Basophils 0.1 10x3/uL (0.0-0.2); #Eosinphils 0.1 10x3/uL (0.0-0.5); #Monocytes 0.8 10x3/uL (0.0-1.1); #Neutrophils 7.2 10x3/uL (1.5-8.4); %Basophils 0.7 % (0.0-2.0); %Eosinophils 0.8 % (0.0-6.0); %Lymphocytes 16.2 % (18.0-47.0); %Monocytes 7.9 % (0.0-10.0); %Neutrophils 72.8 % (40.0-75.0); Hemoglobin 15.1 g/dL (13.5-17.5); Mean Corpuscular HGB CONC 33.8 g/dL (32.0-36.0); Mean Corpuscular Hemoglobin 31.4 pg (27.0-33.0); Mean Corpuscular Volume 92.9 fl (81.2-95.1); Mean Platelet Volume 8.9 fl (7.4-10.4); Platelet Count 266 10x3/uL (150-450); RBC Distribution Width 13.1 % (11.5-14.5); Red Blood Cell (RBC) Count 4.81 10x6/uL (4.32-5.72); White Blood Cell (WBC) Count 9.9 10x3/uL (3.5-10.5)
[2020-09-24 16:55] LABS: INR-International Normal Ratio 0.9; Prothrombin Time 10.3 sec (9.5-12.1)
[2020-09-24 17:01] LABS: Anion Gap 14 mmol/L (10-20); BUN (Urea Nitrogen) 14 mg/dL (8.4-25.7); Calc. Creatinine Clearance 0 mL/min (70-130); Calcium 9.5 mg/dL (7.8-10.44); Carbon Dioxide 26 mmol/L (23-31); Chloride 104 mmol/L (98-107); Glucose 144 mg/dL (80-115); Potassium 4.5 mmol/L (3.5-5.1); Sodium 139 mmol/L (136-145)
[2020-09-24 17:21] LABS: Bilirubin Neg (Negative); Blood, Urine 10 (Negative); Clarity Clear (Clear); Glucose, Urine (Dipstick) Normal (Negative); Ketone, Urine Negative (Negative); Leukocyte Negative (Negative); Nitrite Negative (Negative); Protein, Urine (Dipstick) Negative (Neg-Trace); Urobilinogen Normal mg/dL (Less than 2); pH, Urine 6.5 (5.0-9.0)
[2020-09-24 17:41] LABS: Bacteria/HPF None Seen HPF (None Seen); RBC/HPF 0-3 HPF (0-3); Squamous Epithelial None Seen HPF (0-3); WBC/HPF None Seen HPF (0-3)
== END 2020-09-24 15:49 | disposition home or self-care (01) ==
LOC: LABBT 15:48
PROVIDERS: ATTEND Orthopaedic Surgery
DX: Z01.818 Encounter for other preprocedural examination (principal); M17.0 Bilateral primary osteoarthritis of knee
CPT/HCPCS: 80048; 81001; 85025; 85610; 86850; 86900; 86901; 87081; 93005; 93010

== ENCOUNTER 2020-09-29 06:53 | Day surgery (SDC) | payer MEDICARE, OTHER ==
[2020-09-24 16:47] LABS: #Basophils 0.1 10x3/uL (0.0-0.2); #Eosinphils 0.1 10x3/uL (0.0-0.5); #Monocytes 0.8 10x3/uL (0.0-1.1); #Neutrophils 7.2 10x3/uL (1.5-8.4); %Basophils 0.7 % (0.0-2.0); %Eosinophils 0.8 % (0.0-6.0); %Lymphocytes 16.2 % (18.0-47.0); %Monocytes 7.9 % (0.0-10.0); %Neutrophils 72.8 % (40.0-75.0); Hemoglobin 15.1 g/dL (13.5-17.5); Mean Corpuscular HGB CONC 33.8 g/dL (32.0-36.0); Mean Corpuscular Hemoglobin 31.4 pg (27.0-33.0); Mean Corpuscular Volume 92.9 fl (81.2-95.1); Mean Platelet Volume 8.9 fl (7.4-10.4); Platelet Count 266 10x3/uL (150-450); RBC Distribution Width 13.1 % (11.5-14.5); Red Blood Cell (RBC) Count 4.81 10x6/uL (4.32-5.72); White Blood Cell (WBC) Count 9.9 10x3/uL (3.5-10.5)
[2020-09-24 16:55] LABS: INR-International Normal Ratio 0.9; Prothrombin Time 10.3 sec (9.5-12.1)
[2020-09-24 17:01] LABS: Anion Gap 14 mmol/L (10-20); BUN (Urea Nitrogen) 14 mg/dL (8.4-25.7); Calc. Creatinine Clearance 0 mL/min (70-130); Calcium 9.5 mg/dL (7.8-10.44); Carbon Dioxide 26 mmol/L (23-31); Chloride 104 mmol/L (98-107); Glucose 144 mg/dL (80-115); Potassium 4.5 mmol/L (3.5-5.1); Sodium 139 mmol/L (136-145)
[2020-09-24 17:21] LABS: Bilirubin Neg (Negative); Blood, Urine 10 (Negative); Clarity Clear (Clear); Glucose, Urine (Dipstick) Normal (Negative); Ketone, Urine Negative (Negative); Leukocyte Negative (Negative); Nitrite Negative (Negative); Protein, Urine (Dipstick) Negative (Neg-Trace); Urobilinogen Normal mg/dL (Less than 2); pH, Urine 6.5 (5.0-9.0)
[2020-09-24 17:41] LABS: Bacteria/HPF None Seen HPF (None Seen); RBC/HPF 0-3 HPF (0-3); Squamous Epithelial None Seen HPF (0-3); WBC/HPF None Seen HPF (0-3)
[2020-09-26 10:59] VITALS: BMI 31.4
[2020-09-29] MEDS ORDERED: Vancomycin 1.5 GRAM/300 ML BAG 1.5 GM in Premix Bag 1 BAG IVPB SCH (07:45)
[2020-09-29] MEDS ORDERED: Tranexamic Acid 1,000 MG/10 ML VIAL ONE ×2 (07:48→11:37)
[2020-09-29] MEDS ORDERED: Sodium Chloride 0.9% 100 ML ONE (07:48)
[2020-09-29] MEDS ORDERED: Fentanyl 100 MCG/2 ML VIAL ONE ×4 (08:28→13:24)
[2020-09-29] MEDS ORDERED: Midazolam HCl 2 mg/2 ml Vial ONE (08:28)
[2020-09-29] MEDS ORDERED: Bupivacaine PF 0.5% 30 ML VIAL ONE (09:24)
[2020-09-29] MEDS ORDERED: Lidocaine 1% (PF) 30 ML VIAL ONE (09:24)
[2020-09-29] MEDS ORDERED: methylPREDNISolone Acetate 40 mg/ml Vial ONE (09:24)
[2020-09-29] MEDS ORDERED: PROPOFOL 200 MG/20 ML VIAL ONE (09:38)
[2020-09-29] MEDS ORDERED: Ketorolac Tromethamine 30 MG/ML VIAL ONE (09:38)
[2020-09-29] MEDS ORDERED: Rocuronium Bromide 10 MG/ML (10ML VIAL) ONE (09:38)
[2020-09-29] MEDS ORDERED: Ondansetron PF 4 MG/2 ML Vial ONE (09:38)
[2020-09-29] MEDS ORDERED: Dexamethasone 20 MG/5 ML VIAL ONE (09:38)
[2020-09-29] MEDS ORDERED: Ropivacaine 2% HCl/PF (20 MG/10 ML VIAL) ONE (09:38)
[2020-09-29] MEDS ORDERED: Bupivacaine HCl 0.5%/Epinephrine 1:200,000/PF 30 ml Vial ONE (09:38)
[2020-09-29] MEDS ORDERED: Fentanyl 100 MCG/2 ML VIAL IV PRN (10:19)
[2020-09-29] MEDS ORDERED: Ropivacaine HCl/PF 250 ML in Premix Bag 1 BAG NERVE BLCK SCH (10:30)
[2020-09-29] MEDS ORDERED: Promethazine HCl 25 MG/ML VIAL IM PRN ×2 (10:30→11:10)
[2020-09-29] MEDS ORDERED: Zolpidem Tartrate 5 MG TAB PO PRN ×2 (10:30→11:10)
[2020-09-29] MEDS ORDERED: Ondansetron PF 4 MG/2 ML Vial IVP PRN ×2 (10:30→11:10)
[2020-09-29] MEDS ORDERED: traMADol HCl 50 MG TAB PO PRN ×2 (10:30)
[2020-09-29] MEDS ORDERED: HYDROcodone/Acetaminophen 10/325 mg Tablet PO PRN (10:30)
[2020-09-29] MEDS ORDERED: diphenhydrAMINE 25 MG CAP PO PRN (11:10)
[2020-09-29] MEDS ORDERED: Acetaminophen 325 MG TAB PO PRN (11:10)
[2020-09-29] MEDS ORDERED: Tranexamic Acid 1,000 MG in Sodium Chloride 0.9% 100 ML IVPB SCH (11:15)
[2020-09-29] MEDS ORDERED: Sodium Chloride 0.9% 10 ML ONE (11:38)
[2020-09-29] MEDS: Ketorolac Tromethamine 30 MG/ML VIAL IVP SCH ×2 (16:41→17:20)
[2020-09-29] MEDS: CEFAZOLIN 2 GM in Premix Bag 1 BAG IVPB SCH (17:19)
[2020-09-29] MEDS: Sodium Chloride 0.9% 1,000 ML IV SCH (17:28)
[2020-09-29] MEDS: HYDROcodone/Acetaminophen 10/325 mg Tablet PO PRN (18:58)
[2020-09-29] MEDS ORDERED: Vancomycin HCl 1.5 GM in Sodium Chloride 0.9% 250 ML 300 ML IVPB SCH (21:00)
[2020-09-29] MEDS ORDERED: Non-Formulary Item 1 EACH (Zolpidem Tartrate [Ambien Cr] 12.5 MG Tab.Mphase) PO SCH (21:00)
[2020-09-29] MEDS: Aspirin 81 mg Enteric Coated Tablet PO SCH (22:03)
[2020-09-29] MEDS: rOPINIRole HCl 0.5 MG TAB PO SCH (22:03)
[2020-09-30] MEDS: Ketorolac Tromethamine 30 MG/ML VIAL IVP SCH ×5 (00:17→23:13)
[2020-09-30] MEDS: Sodium Chloride 0.9% 1,000 ML IV SCH ×2 (00:33→07:39)
[2020-09-30] MEDS: CEFAZOLIN 2 GM in Premix Bag 1 BAG IVPB SCH (03:55)
[2020-09-30] MEDS: HYDROcodone/Acetaminophen 10/325 mg Tablet PO PRN ×4 (04:00→21:23)
[2020-09-30 05:50] LABS: Hemoglobin 12.4 g/dL (14.0-18.0); Mean Corpuscular HGB CONC 33.9 g/dL (32.0-36.0); Mean Corpuscular Hemoglobin 32.5 pg (27.0-31.0); Mean Platelet Volume 6.5 fL (7.4-10.4); Platelet Count 233 thou/uL (130-400); RBC Distribution Width 12.2 % (11.5-14.5); Red Blood Cell (RBC) Count 3.81 mill/uL (4.70-6.10); White Blood Cell (WBC) Count 15.6 thou/uL (4.8-10.8)
[2020-09-30] MEDS: Multivitamin W/ Minerals 1 TAB PO SCH (08:40)
[2020-09-30] MEDS: Atorvastatin Calcium 20 MG TAB PO SCH (08:40)
[2020-09-30] MEDS: Ferrous Gluconate 324 MG TAB PO SCH ×2 (08:40→21:22)
[2020-09-30] MEDS: Senokot S 8.6-50 MG TAB PO SCH ×2 (08:40→21:22)
[2020-09-30] MEDS: Loratadine 10 MG TAB PO SCH (08:40)
[2020-09-30] MEDS: Aspirin 81 mg Enteric Coated Tablet PO SCH ×2 (08:41→21:23)
[2020-09-30] MEDS ORDERED: Aspirin 81 mg Enteric Coated Tablet PO SCH (09:00)
[2020-09-30] MEDS ORDERED: Zolpidem Tartrate 5 MG TAB PO PRN (09:48)
[2020-09-30] MEDS: rOPINIRole HCl 0.5 MG TAB PO SCH (21:22)
[2020-10-01] MEDS: HYDROcodone/Acetaminophen 10/325 mg Tablet PO PRN ×2 (05:05→10:16)
[2020-10-01] MEDS: Ketorolac Tromethamine 30 MG/ML VIAL IVP SCH (05:05)
[2020-10-01 06:53] LABS: Hemoglobin 11.8 g/dL (14.0-18.0); Mean Corpuscular HGB CONC 34.5 g/dL (32.0-36.0); Mean Corpuscular Hemoglobin 32.9 pg (27.0-31.0); Mean Corpuscular Volume 95.4 fL (78.0-98.0); Mean Platelet Volume 6.7 fL (7.4-10.4); Platelet Count 213 thou/uL (130-400); RBC Distribution Width 12.4 % (11.5-14.5); Red Blood Cell (RBC) Count 3.58 mill/uL (4.70-6.10); White Blood Cell (WBC) Count 12.8 thou/uL (4.8-10.8)
[2020-10-01] MEDS: Loratadine 10 MG TAB PO SCH (07:55)
[2020-10-01] MEDS: Aspirin 81 mg Enteric Coated Tablet PO SCH (07:55)
[2020-10-01] MEDS: Senokot S 8.6-50 MG TAB PO SCH (07:55)
[2020-10-01] MEDS: Multivitamin W/ Minerals 1 TAB PO SCH (07:55)
[2020-10-01] MEDS: Atorvastatin Calcium 20 MG TAB PO SCH (07:55)
[2020-10-01] MEDS: Ferrous Gluconate 324 MG TAB PO SCH (07:56)
[2020-10-01 08:04] VITALS: BP 130/73; TEMP 98.3
== END 2020-10-01 12:11 | disposition home or self-care (01) ==
LOC: SDC 06:53 → SURG B 11:10 → SDC 10-01 12:11
PROVIDERS: ATTEND Orthopaedic Surgery
PROC: 3E0U33Z Introduction of Anti-inflammatory into Joints, Percutaneous Approach (ICD-10-PCS; principal; 2020-09-29)
PROC: 0SRD0J9 Replacement of Left Knee Joint with Synthetic Substitute, Cemented, Open Approach (ICD-10-PCS; 2020-09-29)
PROC: 8E0YXBZ Computer Assisted Procedure of Lower Extremity (ICD-10-PCS; 2020-09-29)
DX: M17.0 Bilateral primary osteoarthritis of knee (principal); Z79.82 Long term (current) use of aspirin; Z79.899 Other long term (current) drug therapy
CPT/HCPCS: 36415; 80048; 81001; 85025; 85027; 85610; 86850; 86900; 86901; 87081; C1713; C1776; J0690; J1100; J1885; J2001; J2250; J2405; J2704; J2795; J2920; J3010; J3370; J3490; J7050; S0020

== ENCOUNTER 2022-08-19 11:39 | Outpatient (CLI) | payer MEDICARE | END 2022-08-19 11:40 | disposition home or self-care (01) | LOC: RAD 11:39 | PROVIDERS: ATTEND Nurse Practitioner Family | DX: R05.3 Chronic cough (principal) | CPT/HCPCS: 71046 ==

== ENCOUNTER 2022-12-10 06:08 | Day surgery (SDC) | payer OTHER ==
[2022-12-08 16:06] VITALS: BMI 31.4
[2022-12-10] MEDS ORDERED: Lidocaine 1% PF 5 ML VIAL ONE (08:11)
[2022-12-10] MEDS ORDERED: PROPOFOL 200 MG/20 ML VIAL ONE (08:11)
== END 2022-12-10 09:15 | disposition home or self-care (01) ==
LOC: SDC 06:08
PROVIDERS: ATTEND Internal Medicine Gastroenterology
PROC: 0DBL8ZZ Excision of Transverse Colon, Via Natural or Artificial Opening Endoscopic (ICD-10-PCS; principal; 2022-12-10)
DX: Z12.11 Encounter for screening for malignant neoplasm of colon (principal); D12.3 Benign neoplasm of transverse colon; K57.30 Diverticulosis of large intestine without perforation or abscess without bleeding; K64.9 Unspecified hemorrhoids; K21.9 Gastro-esophageal reflux disease without esophagitis; E78.5 Hyperlipidemia, unspecified; M19.90 Unspecified osteoarthritis, unspecified site; G25.81 Restless legs syndrome; Z90.49 Acquired absence of other specified parts of digestive tract; Z96.652 Presence of left artificial knee joint; Z79.899 Other long term (current) drug therapy
CPT/HCPCS: 88305; J2704